=== PATIENT | female | born 1995 | race Two or more races ===

== ENCOUNTER 2023-11-07 12:46 | Inpatient (IN) | payer OTHER ==
[2023-11-06 14:18] LABS: HEMATOCRIT 32.9 % (36.0-45.00); HEMOGLOBIN 10.8 g/dL (12.0-15.00); MEAN CELL VOLUME 82.9 fL (80.00-100.00); MEAN CORPUSCULAR HEMOGLOBIN 27.3 pg (27.00-32.0); MEAN CORPUSCULAR HGB CONC 32.9 g/dl (32.0-36.0); PLATELET COUNT 191 K/uL (150-450); RED BLOOD COUNT 3.97 M/uL (4.00-6.00)
[2023-11-06 14:30] LABS: INR < 0.93; PARTIAL THROMBOPLASTIN TIME 25.9 SECONDS (22.0-34.0); PROTHROMBIN TIME 9.7 SECONDS (9.0-11.5)
[2023-11-06 14:35] LABS: RED CELL DISTRIBUTION WIDTH 22.9 % (11.5-14.5)
[2023-11-06 14:42] LABS: ALBUMIN 3.1 gm/dL (3.4-5.0); BILIRUBIN TOTAL 0.65 mg/dL (0.3-1.2); CREATININE SERUM 0.43 mg/dL (0.55-1.02); GFR 172.41; GLOBULINA 3.8 G/DL (2.4-3.5); POTASSIUM 4.15 mEq/L (3.5-5.1); TOTAL PROTEIN 6.9 gm/dL (6.4-8.2)
[~2023-11-07] VITALS: Ht 157.5 cm; Wt 71.2 kg
[2023-11-07] MEDS ORDERED: FUSILEV50 MG IV (12:54)
[2023-11-12] MEDS ORDERED: IRON325 MG PO (09:46)
[2023-11-12] MEDS ORDERED: PRENATAL + DHA1 EAC1 PO (09:47)
[2023-11-12] MEDS ORDERED: CITRIC ACID/SODIUM CITRATE 30 ML BLIST.PACK PO ONE ×2 (10:46→11:41)
[2023-11-12] MEDS ORDERED: CEFAZOLIN SODIUM 1,000 MG VIAL ONE ×2 (10:46→11:42)
[2023-11-12] MEDS ORDERED: ERYTHROMYCIN BASE 1 GM TUBE OP ONE (11:40)
[2023-11-12] MEDS ORDERED: OXYTOCIN 10 UNITS/ML VIAL ONE (11:40)
[2023-11-12] MEDS ORDERED: IBUprofen 400 MG TABLET PO PRN (13:30)
[2023-11-12] MEDS ORDERED: MEPERIDINE HCL/PF 50 MG/ML VIAL IM PRN (13:30)
[2023-11-12] MEDS ORDERED: OXYTOCIN 1,000 ML IV SCH (13:30)
[2023-11-12] MEDS ORDERED: PROMETHAZINE HCL 50 MG/ML AMPUL IM ONE (15:04)
[2023-11-13] MEDS ORDERED: OxyCODONE HCL/APAP UD (PERCOCET) PO PRN (08:15)
[2023-11-13 09:31] LABS: HEMATOCRIT 31.9 % (36.0-45.00); HEMOGLOBIN 10.5 g/dL (12.0-15.00); MEAN CELL VOLUME 84.4 fL (80.00-100.00); MEAN CORPUSCULAR HEMOGLOBIN 27.8 pg (27.00-32.0); MEAN CORPUSCULAR HGB CONC 32.9 g/dl (32.0-36.0); PLATELET COUNT 149 K/uL (150-450); RED BLOOD COUNT 3.77 M/uL (4.00-6.00)
[2023-11-14] MEDS ORDERED: SIMETHICONE 125 MG CAPSULE PO SCH (13:35)
[2023-11-15] MEDS ORDERED: PERCOCET 5-3251 EACH PO (10:25)
[2023-11-15] MEDS ORDERED: KETO10TA2 PO (10:26)
== END 2023-11-15 12:14 | disposition home or self-care (01) | DRG 788 ==
LOC: OB/GYN 11-12 07:00 → O/R 11-12 09:23 → OB/GYN 11-12 13:11
PROVIDERS: ADMIT Obstetrics & Gynecology; ATTEND Obstetrics & Gynecology
PROC: 4A1HXCZ Monitoring of Products of Conception, Cardiac Rate, External Approach (ICD-10-PCS; 2023-11-12)
PROC: 10D00Z1 Extraction of Products of Conception, Low, Open Approach (ICD-10-PCS; principal; 2023-11-12 08:45)
DX: O34.211 Maternal care for low transverse scar from previous cesarean delivery (principal); Z3A.38 38 weeks gestation of pregnancy; Z37.0 Single live birth; Z20.822 Contact with and (suspected) exposure to COVID-19

== ENCOUNTER 2025-04-19 11:15 | Emergency (ER) | payer OTHER ==
[~2025-04-19] VITALS: Ht 157.5 cm; Wt 71.2 kg
[~2025-04-19 11:15] MED LIST: FUSILEV50 MG IV; IRON325 MG PO; KETO10TA2 PO; PERCOCET 5-3251 EACH PO; PRENATAL + DHA1 EAC1 PO
[2025-04-19 11:46] VITALS: BP 116/77; O2SAT 100
[2025-04-19] MEDS ORDERED: ACETAMINOPHEN 500 MG GEL..CAP PO ONE ×2 (12:00→12:38)
[2025-04-19 13:07] LABS: BASO % 0.3 % (0.1-1.2); EOS # 0.03 (0.04-0.54); EOS % 0.2 % (0.7-7.0); LYMPH # 1.91 (1.18-3.74); LYMPH % 13.4 % (19.3-53.1); MEAN PLATELET VOLUME 10.20 fl (9.4-12.4); MONO # 0.96 (0.24-0.82); MONO % 6.7 % (4.7-12.5); NEUT # 11.12 (1.56-6.13); NEUT % 77.8 % (34.0-71.1); RED CELL DISTRIBUTION WIDTH 12.7 % (11.6-14.4)
== END 2025-04-19 14:18 | disposition home or self-care (01) ==
LOC: ER 11:16
PROVIDERS: General Practice
DX: O26.892 Other specified pregnancy related conditions, second trimester (principal); O10.912 Unspecified pre-existing hypertension complicating pregnancy, second trimester; R07.89 Other chest pain; Z3A.26 26 weeks gestation of pregnancy